=== PATIENT | female | born 1990 | race African-American/Black ===

== ENCOUNTER → 2024-04-08 16:28 | Outpatient (CLI) | payer OTHER, SELFPAY ==
[2024-04-08 17:53] LABS: Add Manual Diff / Slide Review NO; Basophils Absolute Auto 100 /uL (0-100); Basophils Percent Auto 1.2 % (0-2); Eosinophils Absolute Auto 100 /uL (0-450); Eosinophils Percent Auto 1.4 % (2-4); Hematocrit 36.6 % (36-46); Hemoglobin 12.2 g/dL (12.0-16.0); Lymphocytes Absolute Auto 2300 /uL (1100-4500); Lymphocytes Percent Auto 35.9 % (25-40); Mean Corpuscular HGB Conc 33.2 % (30-36); Mean Corpuscular Volume 93.4 fL (80-100); Monocytes Absolute Auto 500 /uL (0-900); Monocytes Percent Auto 8.1 % (3-14); Neutrophils Absolute Auto 3500 /uL (1500-7000); Neutrophils Percent Auto 53.4 % (50-75); Platelet Count 333 X10^3/uL (150-400); Red Blood Cell Count 3.92 X10^6/uL (4.0-5.2); Red Cell Distribution Width 13.4 % (11.6-14.8); White Blood Cell Count 6.5 X10^3/uL (4.5-11.0)
[2024-04-08 18:25] LABS: Alanine Aminotransferase 25 IU/L (<35); Albumin 4.6 g/dL (3.5-5.0); Albumin Globulin Ratio 1.5 (1.0-2.8); Alkaline Phosphatase 50 U/L (38-126); Aspartate Aminotransferase 34 IU/L (14-36); BUN Creatinine Ratio 14.1 (6-22); Bilirubin Total 0.4 mg/dL (0.2-1.3); Blood Urea Nitrogen 13 mg/dL (7-17); Calcium 9.2 mg/dL (8.4-10.2); Carbon Dioxide 23 mmol/L (22-32); Chloride 102 mmol/L (98-107); Estimated Glomerular Filt Rate > 60 mL/min (>60); Globulin 3.1 g/dL (1.7-4.1); Glucose 80 mg/dL (70-100); HEMOLYSIS < 15 (0-50); Lipase 72 U/L (23-300); Potassium 4.2 mmol/L (3.4-5.1); Sodium 135 mmol/L (137-145); Total Protein 7.7 g/dL (6.3-8.2)
== END ==
PROVIDERS: Referring Provider Surgery; Visit Provider Surgery
DX: K80.20 Calculus of gallbladder without cholecystitis without obstruction (principal)
CPT/HCPCS: 36415; 80053; 83690; 85025; 99213

== ENCOUNTER 2024-05-12 06:32 | Day surgery (SDC) | payer OTHER, SELFPAY ==
[2024-04-29 12:06] VITALS: BMI 29.7
[2024-05-12] VITALS (7 sets, daily range): BP systolic 119–140; BP diastolic 79–90; PULSE 75–99; RESP 15–20; TEMP 36.1–36.2; O2SAT 93–100; BMI 30.8
--- NOTE | 2024-05-12 | PATH_ITS ---
[facility] Accession Number: [id number] No. of containers..01 Tissue . 01 Material submitted: . gallbladder - GALLBLADDER . 01 Diagnosis: GALLBLADDER, CHOLECYSTECTOMY: Chronic cholecystitis and cholelithiasis. MRV 05/14/2024 1819 Local . 01 Electronically signed: . Katelyn Carrillo MD, Pathologist NPI- [id number] . 01 Gross description: . Received in formalin with two patient identifiers and gallbladder, is an intact gallbladder, 8.6 x 2.5 x 2.5 cm, with an unremarkable external surface. The cystic duct margin is inked blue and no pericystic lymph node is identified. The lumen contains multiple black, roughened calculi, up to 0.9 cm in greatest dimension not grossly obstructing the cystic duct and admixed with a moderate amount of green mucoid bile. A luminal stricture is identified down to 0.3 cm in diameter. The mucosa adjacent to the stricture is stellate and slightly indurated across an area measuring 1.2 x 1.0 cm. The hepatic surface margin adjacent to the irregular mucosa is inked orange. The remaining mucosa is green and velvety with no yellow discoloration, polyps, or lesions identified. The tadeo average 0.2 cm thick, and market survey representative sections are submitted as follows: . A1: Cystic duct margin and unremarkable full thickness sections. A2-A3: Entire area of irregular mucosa adjacent to stricture. ([id number]) /MRV 05/13/2024 1732 Local . 01 Pathologist provided ICD-10: K80.10, K81.1 . 01 CPT . 994853 Specimen Comment: A courtesy copy of this report has been sent to [phone] Performed at: [address] [facility] [address], [place], [place] [id number] MD Donald Gonzales MD Phone: [phone]
[2024-05-12] MEDS: LACTATED RINGERS 1,000 ML 42 ML IV (07:13)
[2024-05-12] MEDS: FAMOTIDINE 20 MG/2 ML VIAL IV (07:32)
[2024-05-12] MEDS: SCOPOLAMINE 1 PATCH TOP (07:40)
--- NOTE | 2024-05-12 07:44 | PM.HP.IH.1 ---
History of Present Illness History of Present Illness Date Patient Seen: 05/12/24 Time Patient Seen: 07:44 Chief complaint: Lap Maeve Narrative: 33-year-old woman with a symptomatic cholelithiasis. See the office note from April for details. [facility] Medical History (Updated 04/29/24 @ 12:19 by Jud Ovalles RN) Dermatitis (12/2018) Surgical History (Updated 04/29/24 @ 12:19 by Jud Ovalles RN) Hx of shoulder surgery Social History household members: friend(s) Smoking Status: Never smoker alcohol intake: current Meds Home Medications and Allergies Home Medications Medication Instructions Recorded Confirmed Type No Known Home Medications 04/08/24 05/12/24 History Allergies Allergy/AdvReac Type Severity Reaction Status Date / Time morphine Allergy Verified 05/12/24 06:51 Penicillins Allergy Verified 05/12/24 06:51 shellfish derived Allergy Verified 05/12/24 06:51 Exam Vital Signs (past 8 hours): - 05/12/24 07:01 Temperature 97.1 F L Pulse Rate 75 Respiratory Rate 16 Blood Pressure 119/81 Pulse Oximetry 100 Oxygen Delivery Method Room Air Oxygen Delivery Method Room Air Const General: healthy appearing Assessment & Plan Assessment and plan (1) Cholelithiasis: Qualifiers: Cholelithiasis location: gallbladder and bile duct Cholecystitis presence: without cholecystitis Biliary obstruction: without biliary obstruction Qualified Code(s): K80.70 - Calculus of gallbladder and bile duct without cholecystitis without obstruction Status: Acute Plan Laparoscopic cholecystectomy Time-Based Coding :: [TOTAL MINUTES] spent with patient and on the chart (including review of chart, obtaining history, exam, reviewing outside data, placing orders, documenting exam and treatment plan, and counseling patient) on [DATE]. PROFEE Perianesthesia Nurse Document charge(s): No
[2024-05-12] MEDS: CEFAZOLIN 2 GM/100 ML PREMIX 100 ML IV (08:00)
[2024-05-12] MEDS: ACETAMINOPHEN IV 1,000 MG/100 ML VIAL 400 MG IV (08:10)
--- NOTE | 2024-05-12 08:17 | SUR.OPER ---
Supine on padded OR bed, head on pillow, safety belt at thigh, both arms secured on padded arm boards <90 degrees abduction. Legs uncrossed. Padded footboard in place. Tape over blanket to secure lower legs.
[2024-05-12] MEDS: BUPIVACAINE 0.5% W/ EPI (PF) 30 ML VIAL INJ (08:26)
--- NOTE | 2024-05-12 09:06 | P.OP_ITS ---
Operative Date/Time/Diagnoses Date of procedure: 05/12/24 Time of procedure: 09:07 Pre-op diagnosis: Symptomatic cholelithiasis Post-op diagnosis: same Procedure & Clinicians Procedure: Laparoscopic cholecystectomy Same procedure as scheduled: Yes Surgeon: Grant Trinidad [employer] Operations Officer: Anthony Damon Anesthesia Type: General Operative Notes Procedure in detail: The patient was given preoperative antibiotics. The patient was brought to the operating room and placed on the table in the supine position. General endotracheal anesthesia was induced. The abdomen was prepped and draped. A time-out was performed. We made a 1 cm infraumbilical incision. We dissected down to the base of the umbilical stalk using cautery. We grasped the umbilical stalk with a Yolanda clamp to elevate the abdominal wall. We scored the fascia in the midline with cautery. We pierced the peritoneum with a Peon clamp. The Bessie port was placed and the abdomen was insufflated to 15 mmHg. A 5 mm 30 degree laparoscopic was inserted. There was no evidence of any injury from the entry. Next, we placed 5 mm ports in the subxiphoid position and right upper quadrant at the midclavicular line and anterior axillary line. The patient was then positioned in reverse Trendelenburg and the table was tilted to the left. The gallbladder was grasped at the dome and retracted cephalad. We then dissected the cystic structures with a combination of hook cautery and blunt dissection. We obtained a critical view. We placed clips on the cystic duct and artery and divided the cystic duct and artery sharply between the clips. The gallbladder was then dissected off the liver and placed in a specimen retrieval bag. A small amount of bile had spilled from a small tear in the gallbladder wall. We irrigated the right upper quadrant and all the aspirate returned clear. We then removed the 5 mm ports under direct vision we removed the Bessie port. We then injected some local into the fascia and closed the fascia with 2 interrupted 0 Vicryl sutures. The skin incisions were closed with 4-0 Monocryl and Steri-Strips were applied. Band-Aids were applied over the Steri-Strips. EBL: 10 mL Specimen: Gallbladder and contents Anthony KELLY provided assistance with exposure, retraction and closure of incisions. Post-operative Condition: stable Disposition: PACU
[2024-05-12] MEDS: KETOROLAC 30 MG/ML VIAL 15 MG IV (09:42)
[2024-05-12] MEDS: ONDANSETRON 4 MG/2 ML INJ IV (09:43)
[2024-05-12] MEDS: OXYCODONE IR 5 MG TABLET PO (09:45)
[2024-05-12] MEDS: hydrOXYzine HCL 25 MG TABLET PO (09:45)
== END 2024-05-12 10:24 | disposition home or self-care (01) ==
PROVIDERS: Referring Provider Surgery; Visit Provider Surgery
PROC: 0FT44ZZ Resection of Gallbladder, Percutaneous Endoscopic Approach (ICD-10-PCS; CPT 47562; principal; 2024-05-12 07:45)
DX: K80.10 Calculus of gallbladder with chronic cholecystitis without obstruction (principal)
CPT/HCPCS: 47562; A9270; J0131; J0690; J1100; J1885; J2250; J2405; J2704; J3010; J3490